=== PATIENT | female | born 2000 | race African-American/Black ===

== ENCOUNTER 2025-01-19 20:09 | Emergency (ER) | payer SELFPAY ==
[2025-01-19 20:17] VITALS: BP 110/72
--- NOTE | 2025-01-19 20:57 | ED.GENMED ---
History of Present Illness
General
Chief Complaint: Dental Problem
Source: patient
Exam Limitations: none
Time Seen by Provider: 01/19/25 20:51
Nursing documentation reviewed up to this point in time: agreed with
History of Present Illness
History of Present Illness:
Note:
CHIEF COMPLAINT(S)
Toothache
HISTORY OF PRESENT ILLNESS
The patient is a 24-year-old female with no significant past medical history presenting with a toothache that began approximately one week ago. She reports pain predominantly in the lower right region, where her wisdom teeth are located. The pain
has been associated with a headache. She notes a history of a cracked tooth approximately one and a half months ago but did not experience pain at that time. The pain does not correspond with eating deficits, despite her needing to chew on one side
due to discomfort. The pain has recently started to extend to an upper tooth without prior issue. She denies experiencing fever, vomiting, difficulty swallowing, or sore throat. There is no reported neck pain upon movement. She has taken ibuprofen
at a dose of 600 mg and acetaminophen, albeit intermittently. Her last dose of ibuprofen was about three hours ago. The patient was informed by her doctor about her wisdom teeth eruption but does not report current follow-up with a dentist and she
reports that she has to schedule surgery to have her wisdom teeth removed. She also has a hx of dental carries and has had to have her teeth pulled in the past.
ALLERGIES
The patient denies any known antibiotic allergies.
REVIEW OF SYSTEMS
see HPI
PHYSICAL EXAM
- Nursing notes reviewed and vital signs reviewed.
General: Patient is well appearing and in no acute distress; non-toxic
Skin: Warm and dry, no rashes or lesions
Head: Normocephalic, atraumatic
Oral: No frontal erythema noted, uvula midline, no intraoral lesions. No dental abscess evident. Scattered dental caries. Tenderness to palpation over gum tissue proximal to tooth 30 (where you would expect wisdom tooth to be).
Eyes: Sclera non-icteric. EOMs intact.
Cardiac: Regular rate
Pulm: Normal respiratory effort
Neuro: CN II-XII intact, no focal neurologic deficits.
Psychiatric: Appropriate mood and affect.
PLAN
- Administer a numbing injection to the affected area to alleviate pain.
- Consider administration of a stronger anti-inflammatory injection.
- Educate the patient on maintaining hydration and oral hygiene.
- Encourage follow-up with a dentist for further evaluation and potential dental interventions.
DIFFERENTIAL DIAGNOSIS
The Differential Diagnosis includes, in no particular order and is not limited to:
- Dental impaction
- Pericoronitis
- Dental abscess
- Pulpitis
- Gingivitis
- Acute sinusitis
- Temporomandibular joint disorder
- Fractured tooth
- Tension-type headache
- Neuralgia
MDM/DISPOSITION
24-year-old female presents emergency department today with concerns with toothache for the past week. She feels that on her right side worse on the right lower posterior molar. She reports that her wisdom teeth are starting to emerge and she is
placed to have surgery scheduled however she has not gotten around to scheduling it. On physical exam she is well-appearing no acute distress she is afebrile. She does have significant tenderness palpation over the was in tooth area on the right
lower side. No evidence of active infection. Performed right sided inferior alveolar block to help with pain management. Suspect pericoronitis. However, in light of history of dental infections in the past, will start patient on amoxicillin to
cover for infection. Stressed importance of following up with dentist.
Review of Systems
Review of Systems
All Other Systems: ROS reviewed and negative except as documented in HPI and ROS
Phy Exam
Physical Exam
Physical Exam:
see hpi
Course
Orders/Labs/Results
Orders:
Orders
01/19/25 21:10
(Dentalgia) Dental box to bed ONCE
Bupivacaine 0.5%/Epi Dental cartridge at bedside?: Yes
01/19/25 21:13
Ketorolac [Toradol] 15 mg IM NOW STA
01/19/25 21:50
Bupivacaine HCl/Epinephrine [Marcaine 0.5% W/Epi Dental [place]] 1 cartridge INJ OR ONE
01/19/25 22:04
Amoxicillin [Amoxil] 500 mg PO NOW STA
Vital Signs
Initial and Last Documented VS:
Initial Vital Signs
Temp Pulse Resp BP Pulse Ox
97.6 F 75 16 110/72 100
01/19/25 20:17 01/19/25 20:17 01/19/25 20:17 01/19/25 20:17 01/19/25 20:17
Last Documented Vital Signs
Temp Pulse Resp BP Pulse Ox
97.6 F 75 16 110/72 99
01/19/25 20:17 01/19/25 20:17 01/19/25 20:17 01/19/25 20:17 01/19/25 22:55
Procedures
Dentalgia
Dental Block: In. [place]. Block
Bupivacaine 0.5%/Epi Dental cartridge administered?: Yes
Tooth Number: 32
Abcess drained?: No
Pt tolerated procedure well w/ no immediate adverse effects?: Yes
*Pulse Oximetry
SaO2: 100
Oxygen Mode of Delivery: Room air
Patient hypoxic: no
*Critical Care Note
Total Time (30-74mins, 75-104mins- exclusive of procedures): Not Applicable
ED Attending Note
-
Portions of this chart may have been created with voice recognition software.� Occasional wrong word or��sound alike� substitutions may have occurred due to the inherent limitations of voice recognition software.
Discharge Plan
Departure
Patient Disposition: Home (Routine Discharge)
Date of Disposition: 01/19/25
Time of Disposition: 22:38
Patient with high blood pressure during this ER visit?: No
Condition: Good
Discharge Problem:
Acute pericoronitis
Instructions: Dental Pain (DC)
Prescriptions:
New
amoxicillin-pot clavulanate 875-125 mg tablet
1 tab PO BID 7 Days Qty: 14 0RF
Referrals:
UNKNOWN - PT DOES,NOT KNOW [Family Provider]
Activity Restrictions/Additional Instructions:
Augmentin has been sent to your pharmacy. Please take 1 tablet twice daily for 7 days.
Please follow-up with your primary care provider.
PLEASE RETURN EMERGENCY DEPARTMENT SHOULD YOU DEVELOP TROUBLE SWALLOWING, INTRACTABLE NAUSEA OR VOMITING, SHORTNESS OF BREATH, SWELLING NEAR THE JAW, INABILITY TO EAT, INABILITY TOLERATE ORAL INTAKE, CHANGES IN HER VOICE, OR ANY OTHER SIGNS OR
SYMPTOMS WORRISOME TO YOU.

[facility]
[address] [facility], [place] [address]

This office opens Tuesday at 8:30 am, please call to schedule an appointment when the office opens

Interventions
Interventions:
*Risk Screen - Suicide Last Done: 01/19/25 20:17
*General Assessment Last Done: 01/19/25 20:17
*Neglect/Abuse Screening Last Done: 01/19/25 20:17
*ED- Fall Risk Assessment Last Done: 01/19/25 20:29
*ED COVID-19 Vaccine History Last Done: 01/19/25 20:29
*Nursing Disposition Last Done: 01/19/25 22:55
Discharge Date and Time
Discharge Date/Time: 01/19/25 22:58
Print Language: ITALIAN
[2025-01-19] MEDS: TORADOL 15 MG IM (21:33)
[2025-01-19] MEDS: AMOXIL 500 MG PO (22:30)
== END 2025-01-19 22:58 | disposition home or self-care (01) ==
LOC: EMR 20:09
PROVIDERS: EMERGENCY PHYSICIAN Emergency Medicine
DX: K05.20 Aggressive periodontitis, unspecified (principal)
CPT/HCPCS: 99284; 64400; 96372